=== PATIENT | female | born 1955 | race Caucasian/White ===

== ENCOUNTER 2017-04-16 17:27 | Day surgery (SDC) | payer BC ==
[~2017-04-16] VITALS: Ht 162.6 cm; Wt 67.1 kg
--- NOTE | ~2017-04-16 | HP ---
PATIENT: YOVANNY BONILLA MEDICAL RECORD: [id number] ACCOUNT: [id number] LOCATION:[id number] : 59 ADMISSION DATE: 04/16/17 HISTORY AND PHYSICAL EXAMINATION CHIEF COMPLAINT: Pain. HISTORY OF PRESENT ILLNESS: The patient has been having pain for 2 days. She was seen in [place] that was evaluated and treated for both of the gallbladder disease. She states that about 3 or 4 months ago, she actually had another attack that was similar to this and it was a transient attack. This attack occurred consisted of right upper quadrant pain, which radiates around to the back associated with nausea and vomiting as well as right upper quadrant tenderness. The patient has undergone an abdominal ultrasound. Dr. Peñaloza has given me the verbal report and it was consistent with acute cholecystitis with a 7 mm common bile duct. I have seen the patient and evaluated her. She underwent a laparoscopic Girish fundoplication by Dr. Lei and that is why she came to this Emergency Room. I am going to call for Dr. Lei and we will plan for a laparoscopic cholecystectomy, cholangiogram, and possible liver biopsy by her tomorrow. I am going to start her on some IV analgesia, IV antiemetics as well as IV antibiotics. In addition being right upper quadrant pain, she also has some epigastric pain. Deep palpation aggravates. Nothing alleviates. REVIEW OF SYSTEMS: Negative for fever, negative for chest pain. Positive for diarrhea. Negative for back pain. Negative for headache. The review of systems is negative other than as is described above. The Emergency Room in [place] stated that the patient's liver enzymes were not normal and she underwent a CT scan there. She has had no night sweats. No weight loss. She does have anorexia. PAST MEDICAL AND SURGICAL HISTORY: Laparoscopic Girish fundoplication as described above. FAMILY HISTORY: Not pertinent. HOME MEDICINES: Citalopram, Percocet, Zofran. ALLERGIES: No known drug allergies. PHYSICAL EXAMINATION: GENERAL: The patient does not appear acutely ill. She does not appear chronically ill. VITAL SIGNS: Reviewed. The entire physical examination was performed with the presence of a female nurse. HEAD: External ears appear normal. EYES: Extraocular movements are intact. NECK: Trachea is midline. CHEST: No intercostal retractions. PULMONARY: Nonlabored, no stridor. ABDOMEN: As described above. There is no peritonitis to percussion. INTEGUMENT: No rash, no ulcerations. NEUROLOGIC: Nonfocal, no lethargy. The patient answers questions appropriately. Move all extremities well. PSYCHIATRIC: Normal affect. BACK: No thoracic kyphosis. HISTORY AND PHYSICAL [id number] YOVANNY BONILLA LYMPHATICS: No lymphangitic streaking of the exposed extremities. LABORATORY DATA: Has been reviewed. EKG reveals sinus bradycardia. IMPRESSION: Acute cholecystitis. PLAN: As described above. TRANSINT:[id number] Voice Confirmation ID: [id number] DOCUMENT ID: [id number] SHAKA JOY MD CC: LINDA PEÑALOZA [id number] DICTATION DATE: 04/16/17 174 LDR RN: 04/16/172002 ADM IN [facility] [address] [place] [address]
--- NOTE | ~2017-04-16 | OP ---
PATIENT NAME: YOVANNY BONILLA MEDICAL RECORD: [id number] :59 LOCATION:[id number] ADMISSION DATE:04/16/17 SURGEON: SHAKA JOY MD DATE OF OPERATION: 04/16/2017 PREOPERATIVE DIAGNOSIS: Acute cholecystitis. POSTOPERATIVE DIAGNOSES: 1. Symptomatic gallstones. 2. Hepatomegaly. PROCEDURE: 1. Laparoscopic cholecystectomy. 2. Intraoperative cholangiography without immediate surgeon interpretation. SURGEON: Shaka Joy MD MINING DETAIL DRAFTSPERSON: None. BLOOD LOSS: Minimal. ANESTHESIA: General. COMPLICATIONS: None. The risks, possible complications and alternatives to procedure were explained to the patient. She elects to proceed. No radiologist was present for this procedure. The radiologic interpretation will be dictated separately by the radiologist. OPERATIVE COURSE: The patient was conveyed to the operating room electively on 04/16/2017. General anesthesia was induced by the anesthesia staff. The abdomen was sterilely prepped and draped. A small skin holly was accomplished in the left upper quadrant. A Veress needle was inserted through the skin holly into the peritoneal cavity. CO2 insufflation was begun. Once a sufficient pneumoperitoneum had been achieved, a 5-mm trocar was inserted utilizing the Optiview device in the right upper quadrant. Under direct internal vision utilizing a television camera, a 12-mm trocar was inserted at the umbilicus. Another 5-mm trocar was inserted through an incision in the epigastrium. Another 5-mm trocar was inserted through an incision far laterally in the right upper quadrant. During insertion of the Veress needle and all trocars, there appeared to have been no injury to the bowels, any intraperitoneal or retroperitoneal structures. Abdominal survey was undertaken. The indication for the liver biopsy was hepatomegaly. I advanced a core needle biopsy device. Cores were obtained over the convexity of the liver. The biopsy sites were made hemostatic with electrocautery. The gallbladder was grasped. I advanced the cholangiogram trocar. I punctured the fundus of the gallbladder. I aspirated bile. I then injected dye. Under real time fluoroscopy, static cholangiographic images were obtained. These were sent to the radiologist for interpretation. I aspirated bile and then withdrew the cholangiogram trocar. I grasped the gallbladder and retracted it cephalad. The infundibulum was grasped and retracted laterally. Blunt dissection was begun on the triangle of Calot. One cystic artery and one OPERATIVE REPORT [id number] YOVANNY BONILLA cystic duct were identified. These were clipped multiply oblique and divided between clips. The gallbladder was then excised from its bed and the liver. It was placed within a bag retrieval device and was withdrawn through the umbilical fascia defect. The 12-mm trocar was placed and the abdomen reinsufflated. I irrigated and aspirated in the right upper quadrant. There was no bleeding even at low pressure of 8. The Billy-Roseanne suture closure device and 0 Vicryl sutures were used to close the fascia at the umbilicus. The umbilical skin at the umbilicus was closed with interrupted 4-0 Vicryl Rapide sutures. The other skin incisions were closed with interrupted intracuticular 3-0 Vicryls. Benzoin and Steri-Strips were applied. The patient was then extubated and conveyed to post-anesthesia care unit where she was in stable condition. This is an outpatient procedure. She was admitted yesterday and underwent her operation today and will be dismissed home on hydrocodone, as well as Colace. I will see her in the office in 2-3 weeks. TRANSINT:[id number] Voice Confirmation ID: [id number] DOCUMENT ID: [id number] SHAKA JOY MD CC: LINDA PEÑALOAZ [id number] DICTATION DATE: 04/17/17 1227 WELL PULLER: 04/17/172150 DIS IN 04/17/17 [facility] [address] [place] [address]
[2017-04-16 14:52] LABS: BASOPHILS 0.4 % (0-2); EOSINOPHILS 2.5 % (0-7); HEMATOCRIT 46.1 % (36.0-48.0); HEMOGLOBIN 15.1 g/dL (12-16); IMMATURE GRANULOCYTES 0.1 % (0-5); LYMPHOCYTES 14.4 % (15-50); MCH 31.1 pg (26.0-34.0); MCHC 32.8 g/dL (31.0-37.0); MCV 95.1 fL (80.0-100.0); MEAN PLATELET VOLUME 10.1 fL (7.4-10.4); MONOCYTES 11.3 % (2-11); NEUTROPHILS 71.3 % (40-80); RBC 4.85 10x6/uL (4.00-5.40); RDW 12.9 % (11.5-14.5); WBC 7.1 10x3/uL (4.8-10.8)
[2017-04-16 14:54] LABS: PLATELET COUNT 241 10x3/uL (130-400)
[2017-04-16 15:04] LABS: APPEARANCE CLEAR (CLEAR); BILIRUBIN NEGATIVE (NEGATIVE); COLOR DK YELLOW (YELLOW); GLUCOSE NEGATIVE (NEGATIVE); KETONE NEGATIVE (NEGATIVE); LEUKOCYTE ESTERASE TRACE (NEGATIVE); NITRITE NEGATIVE (NEGATIVE); PROTEIN NEGATIVE (NEGATIVE)
[2017-04-16 15:06] LABS: BACTERIA FEW /hpf (NONE SEEN); EPITHELIAL CELLS 0-5 /hpf (0-5); MUCUS >1+ /lpf (NONE SEEN); RED CELLS - URINE 0-5 /hpf (0-5); WHITE CELLS - URINE 0-5 /hpf (0-5)
[2017-04-16 15:14] LABS: UDS - AMPHET NEGATIVE QUAL (NEGATIVE); UDS - BARB NEGATIVE QUAL (NEGATIVE); UDS - BENZO NEGATIVE QUAL (NEGATIVE); UDS - COCAINE NEGATIVE QUAL (NEGATIVE); UDS - METH NEGATIVE QUAL (NEGATIVE); UDS - OPIATE POSITIVE QUAL (NEGATIVE); UDS - PCP NEGATIVE QUAL (NEGATIVE); UDS - THC NEGATIVE QUAL (NEGATIVE)
[2017-04-16 15:25] LABS: ALBUMIN 4.2 g/dL (3.4-5.0); ALKALINE PHOSPHATASE 177 U/L (46-116); ALT (SGPT) 444 U/L (10-68); CALC OSMOLALITY 282 mosm/kg (275-300); CALCIUM 9.2 mg/dL (8.5-10.1); CARBON DIOXIDE 28.2 mmol/L (21.0-32.0); CHLORIDE - SERUM 105 mmol/L (98-107); CREATININE - SERUM 1.2 mg/dL (0.6-1.3); GLUCOSE 101 mg/dL (74-106); POTASSIUM - SERUM 4.4 mmol/L (3.5-5.1); PROTEIN - SERUM 7.8 g/dL (6.4-8.2); SODIUM 142 mmol/L (136-145); UREA NITROGEN 12 mg/dL (7-18); eGFR NON AFRICAN AMERICAN 49 mL/min (90-120)
[2017-04-16 15:29] LABS: AMYLASE - SERUM 54 U/L (25-115); LIPASE 188 U/L (73-393); TROPONIN-I < 0.017 ng/mL (0.000-0.060)
[~2017-04-16 17:27] MED LIST: CELEXA20 MG PO; HYDROCODONE-APA1 TAB PO; PHENERGAN25 M1 PO; REGLAN10 MG PO
--- NOTE | 2017-04-16 18:43 | NUR ---
RECEIVED TO ROOM 2237 VIA WC FROM ED. A/O X3. DENIES NEEDS.
--- NOTE | 2017-04-16 20:10 | NUR ---
BROUGHT PATIENT WATER PER HER REQUEST. PATIENT RESTING IN BED AND DENIES OTHER NEEDS AT THIS TIME. BED IN LOWEST POSITION AND CALL LIGHT WITHIN REACH. ENCOURAGED THE PATIENT TO CALL IF SHE HAS FURTHER NEEDS.
[2017-04-16 23:45] VITALS: BP 154/74; Ht 162.6 cm; Wt 67.1 kg
[2017-04-17] VITALS: BP 120/73
[2017-04-17 04:00] VITALS: BP 116/60
[2017-04-17 06:14] LABS: BASOPHILS 1.2 % (0-2); EOSINOPHILS 4.4 % (0-7); HEMATOCRIT 39.2 % (36.0-48.0); HEMOGLOBIN 12.7 g/dL (12-16); LYMPHOCYTES 31.6 % (15-50); MCH 30.6 pg (26.0-34.0); MCHC 32.4 g/dL (31.0-37.0); MCV 94.5 fL (80.0-100.0); MEAN PLATELET VOLUME 10.3 fL (7.4-10.4); MONOCYTES 13.3 % (2-11); NEUTROPHILS 49.5 % (40-80); PLATELET COUNT 195 10x3/uL (130-400); RBC 4.15 10x6/uL (4.00-5.40); RDW 12.8 % (11.5-14.5)
[2017-04-17 06:17] LABS: WBC 4.1 10x3/uL (4.8-10.8)
[2017-04-17 06:32] LABS: MAGNESIUM - SERUM 2.5 mg/dL (1.8-2.4); PHOSPHOROUS 3.8 mg/dL (2.5-4.9)
--- NOTE | 2017-04-17 07:55 | NUR ---
PATIENT IS AWAKE, ALERT AND ORIENTED X'S 4. RESPIRATIONS ARE EVEN AND UNLABORED ON ROOM AIR. HOB FLAT. PATIENT DENIES NEEDS AT THIS TIME. PATIENT STATED SHE IS GOING TO HAVE HER GALLBLADDER REMOVED TODAY. BED IN LOWEST POSITION, CALL LIGHT IN REACH. BED RAILS UP X'S 2.
--- NOTE | 2017-04-17 08:14 | NUR ---
RESTING, AWAITING SURGERY, DENIES NEEDS, BED LOWEST POSITION, CALL LIGHT IN REACH, WILL CONTINUE TO MONITOR
[2017-04-17 08:23] VITALS: BP 114/65
[2017-04-17 12:56] VITALS: BP 138/77
--- NOTE | 2017-04-17 13:07 | NUR ---
RECEIVED TO FLOOR FROM RECOVERY, DENIES NEEDS, A&O, HOPEFUL FOR DC HOME
--- NOTE | 2017-04-17 14:08 | NUR ---
WALKED 125FT, SOME SORENESS BUT NO PAIN
[2017-04-17] MEDS ORDERED: HYDROCODON-ACE1 EAC7 PO (15:55)
[2017-04-17] MEDS ORDERED: COLACE100 MG PO (15:56)
--- NOTE | 2017-04-17 16:55 | NUR ---
DISCHARGE PAPERS AND INSTRUCTIONS GIVEN, QUESTIONS ANSWERED, IV REMOVED TIP INTACT, DISCHARGED PER WC WITH BELONGINGS
== END 2017-04-17 16:56 | disposition home or self-care (01) ==
LOC: OBSVTIME → D.OPS 17:27 → D.MS 18:41 → D.ER 18:41 → OBSVTIME 18:42 → D.OPS 04-17 16:56 → D.MS 04-17 16:56
PROVIDERS: Emergency Medicine; Surgery
DX: K81.0 Acute cholecystitis (principal); K21.9 Gastro-esophageal reflux disease without esophagitis; R16.0 Hepatomegaly, not elsewhere classified; Z01.812 Encounter for preprocedural laboratory examination

== ENCOUNTER → 2019-02-14 11:12 | Outpatient (CLI) | payer BC ==
[2017-04-16 23:45] VITALS: BMI 25.4
[~2019-02-14 11:12] MED LIST changes: +COLACE100 MG PO; +HYDROCODON-ACE1 EAC7 PO
== END | disposition home or self-care (01) ==
LOC: D.RAD 11:12
PROVIDERS: ATTEND Surgery
DX: K21.9 Gastro-esophageal reflux disease without esophagitis (principal); R13.10 Dysphagia, unspecified